=== PATIENT | female | born 1940 | race Caucasian/White ===

== ENCOUNTER 2017-06-03 18:45 | Observation (INO) | payer MEDICARE, BC ==
[~2017-06-03] VITALS: Ht 170.2 cm; Wt 77.0 kg
[2017-06-03] MEDS ORDERED: IOHEXOL 350 MG/ML 10 ML VIAL (for RAD DIAG) IVCONTRAST ONE (18:46)
[2017-06-03 18:51] VITALS: BP 223/107; PULSE 72; RESP 16; TEMP 98.4; O2SAT 93
[2017-06-03] MEDS ORDERED: GABA600T PO (19:13)
[2017-06-03] MEDS ORDERED: ROPI1TAB PO (19:13)
[2017-06-03] MEDS ORDERED: METO1TAB42 PO (19:13)
[2017-06-03] MEDS ORDERED: SERT25TA83 PO (19:15)
--- NOTE | 2017-06-03 19:27 | PD ---
HPI Chief Complaint: GI Complaint Time Seen by Provider: 19:01 Travel History International Travel<30 days: No Contact w/Intl Traveler<30days: No Traveled to known affect area: No History of Present Illness HPI 77-year-old female complains of bloody stool. Patient started having several bloody bowel movement since 5:00 this evening. Patient states that she has mild dizziness. Patient denies any headache. Patient denies any chest pain or shortness of breath. Patient denies abdominal pain. Patient denies any dysuria or frequency. Patient denies any vaginal discharge or bleeding. Patient denies any fever chills. Patient denies any back pain. Patient states that she had colonoscopy done many years ago and was normal. Patient has history hypertension on metoprolol. Patient is a smoker. Patient took Aleve occasionally. PFSH Past Medical History Anxiety: Yes Hypertension: Yes Neurologic: Yes (RESTLESS LEG SYNDROME) Tetanus Vaccination: > 5 Years Influenza Vaccination: No : 3 Para: 2 Past Surgical History Appendectomy: Yes Cholecystectomy: Yes Hysterectomy: Yes Social History Alcohol Use: Yes (SOCAIL) Tobacco Use: Yes (1/2 PPD) Substance Use: No Allergies-Medications (Allergen,Severity, Reaction): Coded Allergies: Penicillins (Verified Allergy, Unknown, rash, 06/03/17) Uncoded Allergies: sulfa (Allergy, Unknown, rash, 06/03/17) Reported Meds & Prescriptions Reported Meds & Active Scripts Active Reported Sertraline (Sertraline HCl) 25 Mg Tab 25 Mg PO HS Metoprolol Succinate ER 24 HR (Metoprolol Succinate) 25 Mg Tab 25 Mg PO DAILY Ropinirole 1 Mg Tab 1 Mg PO HS Gabapentin 600 Mg Tab 600 Mg PO HS Review of Systems General / Constitutional: No: Fever Eyes: No: Visual changes HENT: No: Headaches Cardiovascular: No: Chest Pain or Discomfort Respiratory: No: Shortness of Breath Gastrointestinal: Positive: Hematochezia, No: Abdominal Pain Genitourinary: No: Dysuria Musculoskeletal: No: Pain Skin: No Rash Neurologic: No: Weakness Psychiatric: No: Depression Endocrine: No: Polydipsia Hematologic/Lymphatic: No: Easy Bruising Physical Exam Narrative GENERAL: Well-nourished, well-developed patient. SKIN: Focused skin assessment warm/dry. HEAD: Normocephalic. EYES: No scleral icterus. No injection or drainage. NECK: Supple, trachea midline. No JVD or lymphadenopathy. CARDIOVASCULAR: Regular rate and rhythm without murmurs, gallops, or rubs. RESPIRATORY: Breath sounds equal bilaterally. No accessory muscle use. GASTROINTESTINAL: Abdomen soft, nondistended. Patient has mild to moderate tenderness palpation right lower quadrant of the abdomen. No rebound tenderness. No mass. Patient has bright red bloody stool in the bathroom. MUSCULOSKELETAL: No cyanosis, or edema. BACK: Nontender without obvious deformity. No CVA tenderness. Neurologic exam normal. Data Data Last Documented VS Vital Signs Date Time Temp Pulse Resp B/P (MAP) Pulse Ox O2 Delivery O2 Flow Rate FiO2 06/03/17 18:51 98.4 72 16 223/107 (145) 93 Orders Orders Complete Blood Count With Diff (06/03/17 19:05) Comprehensive Metabolic Panel (06/03/17 19:05) Prothrombin Time / Inr (Pt) (06/03/17 19:05) Act Partial Throm Time (Ptt) (06/03/17 19:05) Urinalysis - C+S If Indicated (06/03/17 19:05) Ct Abd/Pel W Iv Contrast(Rout) (06/03/17 19:05) Iv Access Insert/Monitor (06/03/17 19:05) Ecg Monitoring (06/03/17 19:) Oximetry (06/03/17 19:05) Type And Screen (06/03/17 19:05) Sodium Chlor 0.9% 1000 Ml Inj (Ns 1000 M (06/03/17 19:30) Pantoprazole Inj (Protonix Inj) (06/03/17 19:30) Famotidine Inj (Pepcid Inj) (06/03/17 19:30) Gabapentin (Neurontin) (06/03/17 21:00) Metoprolol Succinate Er (Toprol Xl) (06/03/17 21:00) Iohexol 350 Inj (Omnipaque 350 Inj) (06/03/17 18:46) Labs Laboratory Tests Test 06/03/17 19:15 White Blood Count 10.5 TH/MM3 Red Blood Count 4.37 MIL/MM3 Hemoglobin 14.1 GM/DL Hematocrit 41.5 % Mean Corpuscular Volume 95.0 FL Mean Corpuscular Hemoglobin 32.3 PG Mean Corpuscular Hemoglobin Concent 34.0 % Red Cell Distribution Width 13.2 % Platelet Count 249 TH/MM3 Mean Platelet Volume 7.9 FL Neutrophils (%) (Auto) 69.3 % Lymphocytes (%) (Auto) 20.7 % Monocytes (%) (Auto) 7.4 % Eosinophils (%) (Auto) 1.8 % Basophils (%) (Auto) 0.8 % Neutrophils # (Auto) 7.3 TH/MM3 Lymphocytes # (Auto) 2.2 TH/MM3 Monocytes # (Auto) 0.8 TH/MM3 Eosinophils # (Auto) 0.2 TH/MM3 Basophils # (Auto) 0.1 TH/MM3 CBC Comment DIFF FINAL Differential Comment Prothrombin Time 10.2 SEC Prothromb Time International Ratio 0.9 RATIO Activated Partial Thromboplast Time 25.2 SEC Urine Color LIGHT-YELLOW Urine Turbidity CLEAR Urine pH 7.5 Urine Specific [place] 1.004 Urine Protein NEG mg/dL Urine Glucose (UA) NEG mg/dL Urine Ketones NEG mg/dL Urine Occult Blood MOD Urine Nitrite NEG Urine Bilirubin NEG Urine Urobilinogen LESS THAN 2.0 MG/DL Urine Leukocyte Esterase NEG Urine RBC 1 /hpf Urine WBC 1 /hpf Urine Squamous Epithelial Cells <1 /hpf Urine Mucus FEW /lpf Microscopic Urinalysis Comment CULT NOT INDICATED Blood Urea Nitrogen 19 MG/DL Creatinine 0.65 MG/DL Random Glucose 114 MG/DL Total Protein 6.9 GM/DL Albumin 3.6 GM/DL Calcium Level 10.2 MG/DL Alkaline Phosphatase 67 U/L Aspartate Amino Transf (AST/SGOT) 17 U/L Alanine Aminotransferase (ALT/SGPT) 24 U/L Total Bilirubin 0.3 MG/DL Sodium Level 142 MEQ/L Potassium Level 4.1 MEQ/L Chloride Level 106 MEQ/L Carbon Dioxide Level 28.5 MEQ/L Anion Gap 8 MEQ/L Estimat Glomerular Filtration Rate 88 ML/MIN [facility] Medical Decision Making Medical Screen Exam Complete: Yes Emergency Medical Condition: Yes Interpretation(s) 2050 PM. CBC WBC 10.5. Hemoglobin 14.1 hematocrit 41.5. Normal differential. BUN 19. CMP otherwise within normal limit. UA is negative. 22:[address] scan abdomen pelvis shows ovarian cyst otherwise no acute abnormality. Differential Diagnosis Differential diagnosis including diverticulosis, diverticulitis, AV malformation , hemorrhoidal bleed. Narrative Course 77-year-old female with bloody stool. Patient has no complaint of abdominal pain. On examination patient has right lower quadrant abdominal pain. Normal saline solution 1 25 cc an hour. Pepcid 40 mg IV. Diagnosis Primary Impression: GI bleed Qualified Codes: K92.2 - Gastrointestinal hemorrhage, unspecified Admitting Information Admitting Physician Requests: Admit Allen Dior MD Jun 03, 2017 19:27
[2017-06-03] MEDS ORDERED: PANTOPRAZOLE SODIUM 40 MG VIAL IV PUSH ONE (19:30)
[2017-06-03] MEDS ORDERED: FAMOTIDINE 20 MG/2 ML VIAL IV PUSH ONE (19:30)
[2017-06-03] MEDS: SODIUM CHLOR 0.9% 1000 ML INJ 1,000 ML IV SCH (19:48)
[2017-06-03 19:50] LABS: AUTOMATED NEUTROPHIL # 7.3 TH/MM3 (1.8-7.7); BASOPHIL # 0.1 TH/MM3 (0-0.2); BASOPHIL % 0.8 % (0.0-2.0); EOSINOPHIL # 0.2 TH/MM3 (0-0.4); EOSINOPHIL % 1.8 % (0.0-4.0); HEMATOCRIT 41.5 % (35.0-46.0); HEMO FLAGS DIFF FINAL; LYMPH % 20.7 % (9.0-44.0); LYMPHOCYTE # 2.2 TH/MM3 (1.0-4.8); MEAN CORPUSCULAR HEMOGLOBIN 32.3 PG (27.0-34.0); MONO % 7.4 % (0.0-8.0); NEUT % 69.3 % (16.0-70.0); PLATELET COUNT 249 TH/MM3 (150-450); RED BLOOD COUNT 4.37 MIL/MM3 (4.00-5.30); RED CELL DISTRIBUTION WIDTH 13.2 % (11.6-17.2); WHITE BLOOD COUNT 10.5 TH/MM3 (4.0-11.0)
[2017-06-03 20:00] LABS: APTT (PATIENT) 25.2 SEC (24.3-30.1); INTERNATIONAL NORMALIZED RATIO 0.9 RATIO; PROTHROMBIN TIME - PATIENT 10.2 SEC (9.8-11.6)
[2017-06-03 20:02] LABS: BLOOD, URINE MOD (NEG); COMMENT (UR) CULT NOT INDICATED; CULTURE IF INDICATED CULT NOT INDICATED; GLUCOSE,URINE NEG (NEG); KETONE, URINE NEG (NEG); MUCUS URINE FEW /lpf (OCC); NITRITE,URINE NEG (NEG); PH, URINE 7.5 (5.0-8.5); SQUAMOUS EPITHELIAL CELL URINE <1 /hpf (0-5); URINE COLOR LIGHT-YELLOW (YELLW/STRAW)
[2017-06-03 20:12] LABS: ALKALINE PHOSPHATASE 67 U/L (45-117); ALT (GPT) 24 U/L (10-53); TOTAL BILIRUBIN ADULT 0.3 MG/DL (0.2-1.0)
[2017-06-03 20:47] LABS: ANION GAP 8 MEQ/L (5-15); AST (GOT) 17 U/L (15-37); BICARBONATE 28.5 MEQ/L (21.0-32.0); BLOOD UREA NITROGEN 19 MG/DL (7-18); CHLORIDE 106 MEQ/L (98-107); GLOMERULAR FILTRATION RATE 88 ML/MIN (>89); POTASSIUM 4.1 MEQ/L (3.5-5.1); SODIUM (NA) 142 MEQ/L (136-145)
[2017-06-03] MEDS ORDERED: METOPROLOL SUCCINATE 25 MG EXTENDED RELEASE TAB PO ONE (21:00)
[2017-06-03] MEDS ORDERED: GABAPENTIN 300 MG CAP PO ONE (21:00)
--- NOTE | 2017-06-03 21:58 | RADRPT ---
EXAM DATE/TIME: 06/03/2017 21:27 [place] COMPARISON: No previous studies available for comparison. INDICATIONS : Blood in stool. IV CONTRAST: 96 cc Omnipaque 350 (iohexol) IV ORAL CONTRAST: No oral contrast ingested. RADIATION DOSE: 11.19 CTDIvol (mGy) MEDICAL HISTORY : Hypertension. SURGICAL HISTORY : Cholecystectomy. Appendectomy.Hysterectomy. ENCOUNTER: Initial ACUITY: 1 day PAIN SCALE: 0/10 LOCATION: Abdomen. TECHNIQUE: Volumetric scanning of the abdomen and pelvis was performed. Using automated exposure control and ad justment of the mA and/or kV according to patient size, radiation dose was kept as low as reasonably achievable to obtain optimal diagnostic quality images. DICOM format image data is available electro nically for review and comparison. FINDINGS: LOWER LUNGS: The visualized lower lungs are clear. LIVER: Homogeneous density. Multiple small scattered hepatic cysts. No solid lesions. There is no dilation of the biliary tree. Gallbladder is surgically absent. SPLEEN: Normal size without lesion. PANCREAS: Within normal limits. KIDNEYS: Normal in size and shape. There is no mass or hydronephrosis. There is a 3 mm nonobstructing left r enal stone. A 2 cm cyst exophytic from the right kidney. ADRENAL GLANDS: Within normal limits. VASCULAR: There is no aortic aneurysm. BOWEL/MESENTERY: The stomach, small bowel, and colon demonstrate no acute abnormality. There is no free intraperitone al air or fluid. Multiple colonic diverticuli most pronounced within the sigmoid region. No acute inf lammatory process. ABDOMINAL WALL: Within normal limits. RETROPERITONEUM: There is no lymphadenopathy. BLADDER: No wall thickening or mass. REPRODUCTIVE: There is a cystic mass involving the pelvis just to the right of midline. This measures 9.5 x 6.9 cm. Hounsfield units are negative and one. No appreciable soft tissue nodule. As a thin imperceptible wa ll. The uterus is either atrophic or surgically absent. No free fluid. INGUINAL: There is no lymphadenopathy or hernia. MUSCULOSKELETAL: There is a scoliotic and degenerative spine. CONCLUSION: 1. No acute abnormality. 2. 9.5 x 6.9 cm cystic mass involving the pelvis. This is likely ovarian in nature. Pelvic sonography could help further clarify this lesion if clinically warranted. 3. Colonic diverticulosis without acute inflammation. 4. Prior cholecystectomy. Jose Angel Summers Jr., MD on June 03, 2017 at 21:51 Board Certified Radiologist. This report was verified electronically.
[2017-06-03 22:02] VITALS: BP 214/98; PULSE 74; RESP 16; O2SAT 93
--- NOTE | 2017-06-03 22:13 | HHI.HP ---
HPI Service [facility] Primary Care Physician Unknown Admission Diagnosis Diagnoses: (1) GI bleed Diagnosis: Principal (2) HTN (hypertension) Diagnosis: Principal (3) Dehydration Diagnosis: Principal (4) Tobacco abuse Diagnosis: Principal Travel History International Travel<30 Days: No Contact w/Intl Traveler <30 Da: No Traveled to Known Affected Are: No History of Present Illness This is a 77-year-old female with a PMH of HTN, Anxiety and Restless Leg Syndrome who presented to the ER with complaints of rectal bleeding starting earlier today. States she's had multiple episodes of bloody stool w/ bowel movements. Reports h/o hemorrhoids, however no h/o rectal bleed. On arrival, BP 223/107, HR 72, O2 sat 93% on RA, Afebrile. CBC unremarkable. Hemoglobin 14.1. GFR 88. BUN 19. UA negative. CT Abd/Pelvis w/ no acute abnormality, ovarian cyst. S/p Pepcid in ER. Review of Systems Except as stated in HPI: all other systems reviewed are Neg ROS: 14 point review of systems otherwise negative. Past Family Social History Past Medical History PMH: HTN, Anxiety and Restless Leg Syndrome Past Surgical History PAST SURGICAL HISTORY: Appendectomy, Cholecystectomy, Hysterectomy Allergies: Coded Allergies: Penicillins (Verified Allergy, Unknown, rash, 06/03/17) Uncoded Allergies: sulfa (Allergy, Unknown, rash, 06/03/17) Family History PAST FAMILY HISTORY: Reviewed. No h/o DM or CAD Social History PAST SOCIAL HISTORY: Occasional alcohol. Smokes 1/2ppd. Negative for drugs. Physical Exam Vital Signs Vital Signs Date Time Temp Pulse Resp B/P (MAP) Pulse Ox O2 Delivery O2 Flow Rate FiO2 06/03/17 22:02 74 16 214/98 (136) 93 Room Air 06/03/17 18:51 98.4 72 16 223/107 (145) 93 Physical Exam PE: GENERAL: Very pleasant elderly white female in no acute distress, appears much younger than stated age. HEENT: PERRLA, EOMI. No scleral icterus or conjunctival pallor. No lid lag or facial droop. CARDIOVASCULAR: Regular rate and rhythm. No obvious murmurs to auscultation. No chest tenderness to palpation. RESPIRATORY: No obvious rhonchi or wheezing. Clear to auscultation. Breath sounds equal bilaterally. GASTROINTESTINAL: Abdomen soft, non-tender, nondistended. BS normal. MUSCULOSKELETAL: Extremities without clubbing, cyanosis, or edema. No obvious deformities. NEUROLOGICAL: Awake, alert and oriented x4. No focal neurologic deficits. Moving both upper and lower extremities spontaneously. Laboratory Laboratory Tests Test 06/03/17 19:15 White Blood Count 10.5 Red Blood Count 4.37 Hemoglobin 14.1 Hematocrit 41.5 Mean Corpuscular Volume 95.0 Mean Corpuscular Hemoglobin 32.3 Mean Corpuscular Hemoglobin Concent 34.0 Red Cell Distribution Width 13.2 Platelet Count 249 Mean Platelet Volume 7.9 Neutrophils (%) (Auto) 69.3 Lymphocytes (%) (Auto) 20.7 Monocytes (%) (Auto) 7.4 Eosinophils (%) (Auto) 1.8 Basophils (%) (Auto) 0.8 Neutrophils # (Auto) 7.3 Lymphocytes # (Auto) 2.2 Monocytes # (Auto) 0.8 Eosinophils # (Auto) 0.2 Basophils # (Auto) 0.1 CBC Comment DIFF FINAL Differential Comment Prothrombin Time 10.2 Prothromb Time International Ratio 0.9 Activated Partial Thromboplast Time 25.2 Urine Color LIGHT-YELLOW Urine Turbidity CLEAR Urine pH 7.5 Urine Specific [place] 1.004 Urine Protein NEG Urine Glucose (UA) NEG Urine Ketones NEG Urine Occult Blood MOD Urine Nitrite NEG Urine Bilirubin NEG Urine Urobilinogen LESS THAN 2.0 Urine Leukocyte Esterase NEG Urine RBC 1 Urine WBC 1 Urine Squamous Epithelial Cells <1 Urine Mucus FEW Microscopic Urinalysis Comment CULT NOT INDICATED Blood Urea Nitrogen 19 Creatinine 0.65 Random Glucose 114 Total Protein 6.9 Albumin 3.6 Calcium Level 10.2 Alkaline Phosphatase 67 Aspartate Amino Transf (AST/SGOT) 17 Alanine Aminotransferase (ALT/SGPT) 24 Total Bilirubin 0.3 Sodium Level 142 Potassium Level 4.1 Chloride Level 106 Carbon Dioxide Level 28.5 Anion Gap 8 Estimat Glomerular Filtration Rate 88 Result Diagram: 06/03/17191406/03/171914 Caprini VTE Risk Assessment Caprini VTE Risk Assessment: No/Low Risk (score <= 1) VTE Pharm Contraindication: Active bleeding Caprini Risk Assessment Model Point Value = 1 Point Value = 2 Point Value = 3 Point Value = 5 Age 41-60 Minor surgery BMI > 25 kg/m2 Swollen legs Varicose veins or History of unexplained or recurrent spontaneous Oral contraceptives or hormone replacement Sepsis (< 1 month) Serious lung disease, including pneumonia (< 1 month) Abnormal pulmonary function Acute myocardial infarction Congestive heart failure (< 1 month) History of inflammatory bowel disease Medical patient at bed rest Age 61-74 Arthroscopic surgery Major open surgery (> 45 min) Laparoscopic surgery (> 45 min) Malignancy Confined to bed (> 72 hours) Immobilizing plaster cast Central venous access Age >= 75 History of VTE Family history of VTE Factor V Leiden Prothrombin [id number] Lupus anticoagulant Anticardiolipin antibodies Elevated serum homocysteine Heparin-induced thrombocytopenia Other congenital or acquired thrombophilia Stroke (< 1 month) Elective arthroplasty Hip, pelvis, or leg fracture Acute spinal cord injury (< 1 month) Prophylaxis Regimen Total Risk Factor Score Risk Level Prophylaxis Regimen 0-1 Low Early ambulation 2 Moderate Order ONE of the following: *Sequential Compression Device (SCD) *Heparin 5000 units SQ BID 3-4 Higher Order ONE of the following medications: *Heparin 5000 units SQ TID *Enoxaparin/Lovenox 40 mg SQ daily (WT < 150 kg, CrCl > 30 mL/min) *Enoxaparin/Lovenox 30 mg SQ daily (WT < 150 kg, CrCl > 10-29 mL/min) *Enoxaparin/Lovenox 30 mg SQ BID (WT < 150 kg, CrCl > 30 mL/min) AND/OR *Sequential Compression Device (SCD) 5 or more Highest Order ONE of the following medications: *Heparin 5000 units SQ TID (Preferred with Epidurals) *Enoxaparin/Lovenox 40 mg SQ daily (WT < 150 kg, CrCl > 30 mL/min) *Enoxaparin/Lovenox 30 mg SQ daily (WT < 150 kg, CrCl > 10-29 mL/min) *Enoxaparin/Lovenox 30 mg SQ BID (WT < 150 kg, CrCl > 30 mL/min) AND *Sequential Compression Device (SCD) Assessment and Plan Problem List: (1) GI bleed ICD Code: K92.2 - Gastrointestinal hemorrhage, unspecified Status: Acute (2) Dehydration ICD Code: E86.0 - Dehydration (3) HTN (hypertension) ICD Code: I10 - Essential (primary) hypertension (4) Tobacco abuse ICD Code: Z72.0 - Tobacco use Assessment and Plan A/P: 1. Rectal Bleed: acute onset of rectal bleeding, h/o hemorrhoids. Hgb 14.0. Admit for Observation, repeat Hgb/Hct in am, consult GI for further evaluation. Hold NSAIDs 2. Dehydration: GFR 88, BUN 19, IVF for hydration, repeat labs in am. 3. HTN: BP 223/107, HR 72 on arrival, s/p Metoprolol PO in ER, BP 191/93, HR 71, give Lopressor 5mg IV x1, monitor BP. 4. Tobacco Abuse: Pt counselled. Ativan/NicoDerm prn if needed. 5. DVT Prophylaxis: Pharmacologic contraindication secondary to acute rectal bleeding 6. Social work for d/c planning as needed. 7. Case discussed w/ ER physician at length. Problem Qualifiers (1) GI bleed: Qualified Codes: K92.2 - Gastrointestinal hemorrhage, unspecified My Palm MD Jun 03, 2017 22:13
[2017-06-03] MEDS ORDERED: ONDANSETRON HCL 4 MG/2 ML VIAL IVP PRN (22:15)
[2017-06-03] MEDS ORDERED: SENNOSIDES 8.6 MG TAB PO PRN (22:15)
[2017-06-03] MEDS ORDERED: MORPHINE SULFATE 4 MG/ML INJ IV PUSH PRN (22:15)
[2017-06-03] MEDS ORDERED: MAGNESIUM HYDROXIDE SUSP 30 ML CUP PO PRN (22:15)
[2017-06-03] MEDS ORDERED: ACETAMINOPHEN 325 MG TAB PO PRN (22:15)
[2017-06-03] MEDS ORDERED: METOPROLOL TARTRATE 5 MG/5 ML VIAL IV PUSH ONE (22:15)
[2017-06-03] MEDS ORDERED: LACTULOSE SYRUP 20 GM/30 ML CUP PO PRN (22:15)
[2017-06-03] MEDS ORDERED: SODIUM CHLORIDE 0.9% FLUSH 10 ML FLUSH IV FLUSH PRN (22:15)
[2017-06-03] MEDS ORDERED: BISACODYL 10 MG SUPP RECTAL PRN (22:15)
[2017-06-03 22:28] VITALS: BP 191/93; PULSE 71; RESP 16; O2SAT 92
[2017-06-03 22:30] VITALS: BP 190/87; PULSE 71; RESP 16; O2SAT 92
[2017-06-03 23:33] VITALS: BP 171/93; PULSE 75; RESP 16; O2SAT 93
[2017-06-04] VITALS (7 sets, daily range): BP systolic 136–214; BP diastolic 63–98; PULSE 72–81; RESP 16–22; TEMP 97.5–98; O2SAT 93–96
[2017-06-04] MEDS: SODIUM CHLOR 0.9% 1000 ML INJ 1,000 ML IV SCH ×2 (03:30→13:35)
[2017-06-04] MEDS ORDERED: ENALAPRILAT 1.25 MG/ML VIAL IV PUSH PRN ×2 (05:00→08:30)
[2017-06-04 07:03] LABS: AUTOMATED NEUTROPHIL # 5.2 TH/MM3 (1.8-7.7); BASOPHIL % 0.5 % (0.0-2.0); EOSINOPHIL # 0.2 TH/MM3 (0-0.4); EOSINOPHIL % 2.7 % (0.0-4.0); HEMATOCRIT 30.1 % (35.0-46.0); HEMO FLAGS DIFF FINAL; LYMPH % 22.4 % (9.0-44.0); LYMPHOCYTE # 1.8 TH/MM3 (1.0-4.8); MEAN CELL VOLUME 94.8 FL (80.0-100.0); MEAN CORPUSCULAR HEMOGLOBIN 32.8 PG (27.0-34.0); MEAN CORPUSCULAR HGB CONC 34.6 % (32.0-36.0); MONO % 8.9 % (0.0-8.0); NEUT % 65.5 % (16.0-70.0); PLATELET COUNT 186 TH/MM3 (150-450); RED BLOOD COUNT 3.18 MIL/MM3 (4.00-5.30); WHITE BLOOD COUNT 7.9 TH/MM3 (4.0-11.0)
[2017-06-04 07:42] LABS: ALKALINE PHOSPHATASE 43 U/L (45-117); ALT (GPT) 16 U/L (10-53); ANION GAP 6 MEQ/L (5-15); AST (GOT) 12 U/L (15-37); BICARBONATE 28.4 MEQ/L (21.0-32.0); BLOOD UREA NITROGEN 17 MG/DL (7-18); CHLORIDE 110 MEQ/L (98-107); GLOMERULAR FILTRATION RATE 112 ML/MIN (>89); POTASSIUM 4.2 MEQ/L (3.5-5.1); SODIUM (NA) 144 MEQ/L (136-145); TOTAL BILIRUBIN ADULT 0.3 MG/DL (0.2-1.0)
--- NOTE | 2017-06-04 08:57 | PD.CONS ---
HPI History of Present Illness This is a 77 year old female with HTN who presented with rectal bleeding that started yesterday. Bright red blood intermingled with formed stool initially, then stool became loose. Dark blood clots mixed in as well. No abd pain, n/v, unintended weight loss, diarrhea, constipation. No prior hx GIB. Not on blood thinners. She takes 2 Aleve daily, for at least years. Last colonoscopy in [place] > 8 y ago, normal per pt. Never had EGD. (Nallely Scherer) PFSH Past Medical History PMH: HTN, Anxiety and Restless Leg Syndrome Past Surgical History PAST SURGICAL HISTORY: Appendectomy, Cholecystectomy, Hysterectomy (Nallely Scherer) Coded Allergies: Penicillins (Verified Allergy, Unknown, rash, 06/03/17) Uncoded Allergies: sulfa (Allergy, Unknown, rash, 06/03/17) Family History PAST FAMILY HISTORY: Reviewed. No h/o DM or CAD Social History PAST SOCIAL HISTORY: rare alcohol. Smokes 1/2ppd. Negative for drugs. (Nallely Scherer) Review of Systems Constitutional: DENIES: Weight loss Eyes: DENIES: Blurred vision Ears, nose, mouth, throat: DENIES: Hearing loss Respiratory: DENIES: Hemoptysis Cardiovascular: DENIES: Chest pain Gastrointestinal: COMPLAINS OF: Black stools, Bloody stools, DENIES: Abdominal pain, Constipation, Diarrhea, Nausea, Vomiting, Hematemesis Genitourinary: DENIES: Hematuria Musculoskeletal: DENIES: Joint Swelling Integumentary: DENIES: Jaundice Hematologic/lymphatic: DENIES: Bruising Neurologic: DENIES: Abnormal gait Psychiatric: DENIES: Confusion (Nallely Scherer) GI Exam Vitals I&O Vital Signs Date Time Temp Pulse Resp B/P (MAP) Pulse Ox O2 Delivery O2 Flow Rate FiO2 06/04/17 07:23 97.5 73 16 148/67 (94) 94 06/04/17 03:35 97.7 77 18 193/94 (127) 94 06/04/17 00:05 97.8 81 19 161/97 (118) 94 06/04/17 00:01 06/03/17 23:33 75 16 171/93 (119) 93 Room Air 06/03/17 22:30 71 16 190/87 (121) 92 Room Air 06/03/17 22:28 71 16 191/93 (125) 92 Room Air 06/03/17 22:02 74 16 214/98 (136) 93 Room Air 06/03/17 18:51 98.4 72 16 223/107 (145) 93 I/O 06/03/17 06/03/17 06/03/17 06/04/17 06/04/17 06/04/17 07:00 15:00 23:00 07:00 15:00 23:00 Intake Total 1000 ml 200 ml Output Total 400 ml Balance 1000 ml -200 ml Intake Oral 200 ml IV Total 1000 ml Output Stool Total 400 ml # Voids 3 # Bowel Movements 3 1 Imaging Last Impressions Abdomen/Pelvis CT 06/03/171904 Signed Impressions: Service Date/Time: May 21:27 - CONCLUSION: 1. No acute abnormality. 2. 9.5 x 6.9 cm cystic mass involving the pelvis. This is likely ovarian in nature. Pelvic sonography could help further clarify this lesion if clinically warranted. 3. Colonic diverticulosis without acute inflammation. 4. Prior cholecystectomy. Jose Angel Summers Jr., MD Laboratory Test 06/03/17 19:15 06/04/17 06:05 White Blood Count 10.5 TH/MM3 7.9 TH/MM3 Red Blood Count 4.37 MIL/MM3 3.18 MIL/MM3 Hemoglobin 14.1 GM/DL 10.4 GM/DL Hematocrit 41.5 % 30.1 % Mean Corpuscular Volume 95.0 FL 94.8 FL Mean Corpuscular Hemoglobin 32.3 PG 32.8 PG Mean Corpuscular Hemoglobin Concent 34.0 % 34.6 % Red Cell Distribution Width 13.2 % 13.0 % Platelet Count 249 TH/MM3 186 TH/MM3 Mean Platelet Volume 7.9 FL 7.6 FL Neutrophils (%) (Auto) 69.3 % 65.5 % Lymphocytes (%) (Auto) 20.7 % 22.4 % Monocytes (%) (Auto) 7.4 % 8.9 % Eosinophils (%) (Auto) 1.8 % 2.7 % Basophils (%) (Auto) 0.8 % 0.5 % Neutrophils # (Auto) 7.3 TH/MM3 5.2 TH/MM3 Lymphocytes # (Auto) 2.2 TH/MM3 1.8 TH/MM3 Monocytes # (Auto) 0.8 TH/MM3 0.7 TH/MM3 Eosinophils # (Auto) 0.2 TH/MM3 0.2 TH/MM3 Basophils # (Auto) 0.1 TH/MM3 0.0 TH/MM3 CBC Comment DIFF FINAL DIFF FINAL Differential Comment Prothrombin Time 10.2 SEC Prothromb Time International Ratio 0.9 RATIO Activated Partial Thromboplast Time 25.2 SEC Urine Color LIGHT-YELLOW Urine Turbidity CLEAR Urine pH 7.5 Urine Specific [place] 1.004 Urine Protein NEG mg/dL Urine Glucose (UA) NEG mg/dL Urine Ketones NEG mg/dL Urine Occult Blood MOD Urine Nitrite NEG Urine Bilirubin NEG Urine Urobilinogen LESS THAN 2.0 MG/DL Urine Leukocyte Esterase NEG Urine RBC 1 /hpf Urine WBC 1 /hpf Urine Squamous Epithelial Cells <1 /hpf Urine Mucus FEW /lpf Microscopic Urinalysis Comment CULT NOT INDICATED Blood Urea Nitrogen 19 MG/DL 17 MG/DL Creatinine 0.65 MG/DL 0.53 MG/DL Random Glucose 114 MG/DL 97 MG/DL Total Protein 6.9 GM/DL 5.0 GM/DL Albumin 3.6 GM/DL 2.6 GM/DL Calcium Level 10.2 MG/DL 8.9 MG/DL Alkaline Phosphatase 67 U/L 43 U/L Aspartate Amino Transf (AST/SGOT) 17 U/L 12 U/L Alanine Aminotransferase (ALT/SGPT) 24 U/L 16 U/L Total Bilirubin 0.3 MG/DL 0.3 MG/DL Sodium Level 142 MEQ/L 144 MEQ/L Potassium Level 4.1 MEQ/L 4.2 MEQ/L Chloride Level 106 MEQ/L 110 MEQ/L Carbon Dioxide Level 28.5 MEQ/L 28.4 MEQ/L Anion Gap 8 MEQ/L 6 MEQ/L Estimat Glomerular Filtration Rate 88 ML/MIN 112 ML/MIN Physical Examination HEENT: PERRL; normocephalic; atraumatic; no jaundice. CHEST: diminished , wheezes right side CARDIAC: RRR ABDOMEN: Soft, nondistended, nontender; no hepatosplenomegaly; bowel sounds are present in all four quadrants. EXTREMITIES: No clubbing, cyanosis, or edema. SKIN: Normal; no rash; no jaundice. MISSILE [employer]CH[employer]IC: No focal deficits; alert and oriented times three. (Nallely Scherer) Assessment and Plan Plan ASSESSMENT - rectal bleeding, anemia - onset bright red blood and clots in stool yesterday , hgb dropped from 14 to 10.4 overnight. last colonoscopy 8 y ago and normal, never had EGD, regularly uses Aleve for years PLAN - EGD/colonoscopy am - GoLytelyprep - obtain consent - clears today - NPO - monitor HH - transfuse as needed This pt seen by myself and Dr Fowler and this note is written on his behalf (Nallely Scherer) Physician Comments Seen and examined with Dimple. Plan as above. Risk, benefits and possible complications discussed with the patient. Will proceed with EGD and Colonoscopy in AM. (Jane Fowler MD) Nallely Scherer Jun 04, 2017 08:57 Jane Fowler MD Jun 04, 2017 12:03
[2017-06-04] MEDS ORDERED: cloNIDine HCL 0.1 MG TAB PO PRN (09:30)
[2017-06-04] MEDS: DOCUSATE SODIUM 50 MG/SENNA 8.6 MG TAB PO SCH ×2 (09:41→20:17)
[2017-06-04] MEDS: SODIUM CHLORIDE 0.9% FLUSH 10 ML FLUSH IV FLUSH SCH ×2 (09:41→20:17)
[2017-06-04] MEDS: METOPROLOL SUCCINATE 25 MG EXTENDED RELEASE TAB PO SCH (09:41)
--- NOTE | 2017-06-04 13:34 | HHI.PR ---
Subjective Remarks Follow-up hematochezia. Noticed dark blood this morning. History of hemorrhoids. Denies abdominal pain. Uses NSAIDs. Discussed with RN Objective Vitals Vital Signs Date Time Temp Pulse Resp B/P (MAP) Pulse Ox O2 Delivery O2 Flow Rate FiO2 06/04/17 11:20 97.6 73 16 171/88 (115) 94 06/04/17 07:23 97.5 73 16 148/67 (94) 94 06/04/17 03:35 97.7 77 18 193/94 (127) 94 06/04/17 00:05 97.8 81 19 161/97 (118) 94 06/04/17 00:01 06/03/17 23:33 75 16 171/93 (119) 93 Room Air 06/03/17 22:30 71 16 190/87 (121) 92 Room Air 06/03/17 22:28 71 16 191/93 (125) 92 Room Air 06/03/17 22:02 74 16 214/98 (136) 93 Room Air 06/03/17 18:51 98.4 72 16 223/107 (145) 93 I/O 06/03/17 06/03/17 06/03/17 06/04/17 06/04/17 06/04/17 07:00 15:00 23:00 07:00 15:00 23:00 Intake Total 1000 ml 200 ml Output Total 400 ml Balance 1000 ml -200 ml Intake Oral 200 ml IV Total 1000 ml Output Stool Total 400 ml # Voids 3 # Bowel Movements 3 1 Result Diagram: 06/04/1760406/04/17604 Imaging Last Impressions Abdomen/Pelvis CT 06/03/171904 Signed Impressions: Service Date/Time: May 21:27 - CONCLUSION: 1. No acute abnormality. 2. 9.5 x 6.9 cm cystic mass involving the pelvis. This is likely ovarian in nature. Pelvic sonography could help further clarify this lesion if clinically warranted. 3. Colonic diverticulosis without acute inflammation. 4. Prior cholecystectomy. Jose Angel Summers Jr., MD Objective Remarks GENERAL: Very pleasant elderly white female in no acute distress, appears much younger than stated age. HEENT: PERRLA, EOMI. No scleral icterus or conjunctival pallor. No lid lag or facial droop. CARDIOVASCULAR: Regular rate and rhythm. No obvious murmurs to auscultation. No chest tenderness to palpation. RESPIRATORY: No obvious rhonchi or wheezing. Clear to auscultation. Breath sounds equal bilaterally. GASTROINTESTINAL: Abdomen soft, non-tender, nondistended. BS normal. MUSCULOSKELETAL: Extremities without clubbing, cyanosis, or edema. No obvious deformities. NEUROLOGICAL: Awake, alert and oriented x4. No focal neurologic deficits. Moving both upper and lower extremities spontaneously. A/P Problem List: (1) GI bleed ICD Code: K92.2 - Gastrointestinal hemorrhage, unspecified Status: Acute (2) Dehydration ICD Code: E86.0 - Dehydration (3) HTN (hypertension) ICD Code: I10 - Essential (primary) hypertension (4) Tobacco abuse ICD Code: Z72.0 - Tobacco use Assessment and Plan 1. Rectal Bleed: acute onset of rectal bleeding, h/o hemorrhoids. Continue PPI and follow-up GI consult. Will likely need endoscopy. Hold NSAIDs 2. Dehydration: GFR 88, BUN 19, IVF for hydration, repeat labs in am. Improving 3. HTN: BP 223/107, HR 72 on arrival, s/p Metoprolol PO in ER, BP 191/93, HR 71, give Lopressor 5mg IV x1, monitor BP. Improving discontinue IV fluids if tolerating by mouth. Continue metoprolol with as needed Vasotec and clonidine 4. Anemia secondary to acute blood loss. Will monitor repeat CBC in the morning 5. Tobacco Abuse: Pt counselled. Ativan/NicoDerm prn if needed. 6. DVT Prophylaxis: Pharmacologic contraindication secondary to acute rectal bleeding Discharge Planning Not ready for discharge Problem Qualifiers (1) GI bleed: Qualified Codes: K92.2 - Gastrointestinal hemorrhage, unspecified Vasile Soni MD Jun 04, 2017 13:34
[2017-06-04] MEDS ORDERED: PEG (High)/E-LYTE SOLN 4000 ML BTL PO ONE (16:00)
[2017-06-04] MEDS ORDERED: SERTRALINE HCL 50 MG TAB PO SCH (21:00)
[2017-06-04] MEDS ORDERED: GABAPENTIN 300 MG CAP PO SCH (21:00)
[2017-06-04] MEDS ORDERED: SODIUM CHLORID 0.9% 500 ML IV PRN (23:45)
[2017-06-04] MEDS ORDERED: POVIDONE IODINE 5% (ANTISEPSIS KIT) 4 APPLICATIONS EACH NARE PRN (23:45)
[2017-06-04] MEDS ORDERED: CHLORHEXIDINE GLUCONATE 2 % 1 PACK (2 CLOTHS) TOPICAL PRN (23:45)
[2017-06-04] MEDS ORDERED: LACTATED RINGER'S 1000 ML IV PRN (23:45)
[2017-06-05 03:57] VITALS: BP 163/77; PULSE 73; RESP 19; TEMP 97.6; O2SAT 94
[2017-06-05 08:23] VITALS: BP 162/86; PULSE 79; RESP 18; TEMP 97.8; O2SAT 92
[2017-06-05] MEDS: SODIUM CHLOR 0.9% 1000 ML INJ 1,000 ML IV SCH (08:27)
[2017-06-05] MEDS: SODIUM CHLORIDE 0.9% FLUSH 10 ML FLUSH IV FLUSH SCH (08:27)
[2017-06-05] MEDS: DOCUSATE SODIUM 50 MG/SENNA 8.6 MG TAB PO SCH (09:00)
[2017-06-05 09:13] LABS: AUTOMATED NEUTROPHIL # 4.2 TH/MM3 (1.8-7.7); BASOPHIL % 0.5 % (0.0-2.0); EOSINOPHIL # 0.2 TH/MM3 (0-0.4); HEMATOCRIT 30.8 % (35.0-46.0); HEMO FLAGS DIFF FINAL; LYMPH % 24.8 % (9.0-44.0); LYMPHOCYTE # 1.6 TH/MM3 (1.0-4.8); MEAN CELL VOLUME 94.5 FL (80.0-100.0); MEAN CORPUSCULAR HEMOGLOBIN 32.1 PG (27.0-34.0); MONO % 8.8 % (0.0-8.0); NEUT % 62.9 % (16.0-70.0); PLATELET COUNT 207 TH/MM3 (150-450); RED BLOOD COUNT 3.25 MIL/MM3 (4.00-5.30); RED CELL DISTRIBUTION WIDTH 13.3 % (11.6-17.2); WHITE BLOOD COUNT 6.6 TH/MM3 (4.0-11.0)
[2017-06-05 09:33] LABS: BICARBONATE 29.1 MEQ/L (21.0-32.0); MAGNESIUM 1.8 MG/DL (1.5-2.5); POTASSIUM 4.2 MEQ/L (3.5-5.1)
[2017-06-05] MEDS: METOPROLOL SUCCINATE 25 MG EXTENDED RELEASE TAB PO SCH (10:36)
[2017-06-05 11:05] VITALS: BP 164/83; PULSE 67; RESP 18; TEMP 98.2; O2SAT 92
[2017-06-05] MEDS ORDERED: LACTATED RINGER'S 1000 ML INJ 1,000 ML IV ONE (12:00)
[2017-06-05] MEDS ORDERED: LIDOCAINE HCL 1% PF 5 ML AMPULE OTHER ONE (12:00)
[2017-06-05] MEDS ORDERED: PROPOFOL 200 MG/20 ML AMP IV ONE (12:00)
[2017-06-05] MEDS ORDERED: DO NOT ADM ANY ANTICOAGULANT DRUGS PRN (12:21)
--- NOTE | 2017-06-05 12:21 | HHI.PR ---
Subjective Remarks Follow-up GI bleed. Continue to have hematochezia yesterday. Awaiting colonoscopy. Discussed with RN Objective Vitals Vital Signs Date Time Temp Pulse Resp B/P (MAP) Pulse Ox O2 Delivery O2 Flow Rate FiO2 06/05/17 11:05 98.2 67 18 164/83 (110) 92 06/05/17 08:23 97.8 79 18 162/86 (111) 92 06/05/17 03:57 97.6 73 19 163/77 (105) 94 06/04/17 23:15 97.6 77 18 136/63 (87) 94 06/04/17 20:19 97.8 72 22 214/98 (136) 96 06/04/17 16:00 98.0 79 18 176/73 (107) 93 I/O 06/04/17 06/04/17 06/04/17 06/05/17 06/05/17 06/05/17 07:00 15:00 23:00 07:00 15:00 23:00 Intake Total 200 ml Output Total 400 ml Balance -200 ml Intake Oral 200 ml Output Stool Total 400 ml # Voids 3 1 4 # Bowel Movements 1 Result Diagram: 06/05/17 0835 06/05/17 0835 Imaging Last Impressions Abdomen/Pelvis CT 06/03/17 190 Signed Impressions: Service Date/Time: May 21:27 - CONCLUSION: 1. No acute abnormality. 2. 9.5 x 6.9 cm cystic mass involving the pelvis. This is likely ovarian in nature. Pelvic sonography could help further clarify this lesion if clinically warranted. 3. Colonic diverticulosis without acute inflammation. 4. Prior cholecystectomy. Jose Angel Summers Jr., MD Objective Remarks GENERAL: Very pleasant elderly white female in no acute distress, appears much younger than stated age. HEENT: PERRLA, EOMI. No scleral icterus or conjunctival pallor. No lid lag or facial droop. CARDIOVASCULAR: Regular rate and rhythm. No obvious murmurs to auscultation. No chest tenderness to palpation. RESPIRATORY: No obvious rhonchi or wheezing. Clear to auscultation. Breath sounds equal bilaterally. GASTROINTESTINAL: Abdomen soft, non-tender, nondistended. BS normal. MUSCULOSKELETAL: Extremities without clubbing, cyanosis, or edema. No obvious deformities. NEUROLOGICAL: Awake, alert and oriented x4. No focal neurologic deficits. Moving both upper and lower extremities spontaneously. No significant change in PE from previous A/P Problem List: (1) GI bleed ICD Code: K92.2 - Gastrointestinal hemorrhage, unspecified Status: Acute (2) Dehydration ICD Code: E86.0 - Dehydration (3) HTN (hypertension) ICD Code: I10 - Essential (primary) hypertension (4) Tobacco abuse ICD Code: Z72.0 - Tobacco use Assessment and Plan 1. Rectal Bleed: acute onset of rectal bleeding, h/o hemorrhoids. Continue PPI and follow-up colonoscopy by GI. Hold NSAIDs 2. Dehydration: GFR 88, BUN 19, IVF for hydration. Improving 3. HTN: BP 223/107, HR 72 on arrival, s/p Metoprolol PO in ER, BP 191/93, HR 71, give Lopressor 5mg IV x1, monitor BP. Improving discontinue IV fluids if tolerating by mouth. Continue metoprolol with as needed Vasotec and clonidine.. Cautious BP control secondary to ongoing bleed 4. Anemia secondary to acute blood loss. Stable. Will monitor repeat CBC in the morning 5. Tobacco Abuse: Pt counselled. Ativan/NicoDerm prn if needed. 6. DVT Prophylaxis: Pharmacologic contraindication secondary to acute rectal bleeding Discharge Planning Discharge when cleared by GI Problem Qualifiers (1) GI bleed: Qualified Codes: K92.2 - Gastrointestinal hemorrhage, unspecified Vasile Soni MD Jun 05, 2017 12:21
--- NOTE | 2017-06-05 12:27 | GIPROC ---
[facility] [address] [facility]. [facility], [address] EGD PROCEDURE REPORT EXAM DATE: 06/05/2017 PATIENT NAME: Monica Whatley MR #: [id number] BIRTHDATE: 1940 ATTENDING: Jane Fowler MD ORDER #: [id number] UTILITY WORKER FORGE: Juan Antonio Lacey Pat STATUS: inpatient INDICATIONS: The patient is a 77 yr old female here for an EGD due to hematochezia PROCEDURE PERFORMED: EGD, diagnostic MEDICATIONS: None and Per Anesthesia. TOPICAL ANESTHETIC: none CONSENT: The patient understands the risks and benefits of the procedure and understands that these risks include, but are not limited to: sedation, allergic reaction, infection, perforation and/or bleeding. Alternative means of evaluation and treatment include, among others: physical exam, x-rays, and/or surgical intervention. The patient elects to proceed with this endoscopic procedure. medical equipment was checked for proper function. Hand hygiene and appropriate measures for infection prevention was taken. After the risks, benefits and alternatives of the procedure were thoroughly explained, Informed consent was verified, confirmed and timeout was successfully executed by the treatment team. The patient was anesthetized with topical anesthesia and the EC-[id number] (Pedi C) endoscope was introduced through the mouth and advanced to the second portion of the duodenum. Retroflexion was performed and was normal The gastroscope was then slowly withdrawn and removed. The endoscopy was otherwise normal. ADVERSE EVENTS: There were no complications. IMPRESSIONS: Normal endoscopy otherwise RECOMMENDATIONS: 1. No treatment 2. Avoid NSAIDS PATIENT CONDITION: stable DISPOSITION: Observation REPEAT EXAM: NONE Jane Fowler MD eSigned: Jane Fowler MD 06/05/2017 12:27 PM cc: PATIENT NAME: Monica Whatley MR#: [id number]
--- NOTE | 2017-06-05 12:31 | GIPROC ---
[facility] [address] [facility]. [facility], [address] COLONOSCOPY PROCEDURE REPORT EXAM DATE: 06/05/2017 PATIENT NAME: Monica Whatley MR #: [id number] BIRTHDATE: 1940 ENDOSCOPIST: Jane Fowler MD ORDER #: [id number] 3RD GRADE TEACHER: Sherri Ward and Gerson Lacey STATUS: inpatient INDICATIONS: The patient is a 77 yr old female here for a colonoscopy due to rectal bleeding PROCEDURE PERFORMED: Colonoscopy, diagnostic MEDICATIONS: None and Per Anesthesia. PREP QUALITY: fair PREP TYPE:GoLytely ESTIMATED BLOOD LOSS: None CONSENT: The patient understands the risks and benefits of the procedure and understands that these risks include, but are not limited to: sedation, allergic reaction, infection, perforation and/or bleeding. Alternative means of evaluation and treatment include, among others: physical exam, x-rays, and/or surgical intervention. The patient elects to proceed with this endoscopic procedure. medical equipment was checked for proper function. Hand hygiene and appropriate measures for infection prevention was taken. After the risks, benefits and alternatives of the procedure were thoroughly explained, Informed consent was verified, confirmed and timeout was successfully executed by the treatment team. A digital exam revealed no abnormalities of the rectum The Pentax EC-[id number] endoscope was introduced through the anus and advanced to the cecum, which was identified by both the appendix and ileocecal valve. The instrument was then slowly withdrawn as the colon was fully examined. COLON FINDINGS: There was severe diverticulosis noted in the sigmoid colon and descending colon with associated muscular hypertrophy, colonic spasm and tortuosity. Moderate sized internal hemorrhoids were found. Retroflexed views revealed no abnormalities The scope was then completely withdrawn from the patient and the procedure terminated. PROCEDURE WITHDRAWAL TIME:9minutes ADVERSE EVENTS: There were no complications. IMPRESSIONS: 1. There was severe diverticulosis noted in the sigmoid colon and descending colon 2. Moderate sized internal hemorrhoids RECOMMENDATIONS: High fiber diet RECALL: Return 5 years Colonoscopy Jane Fowler MD eSigned: Jane Fowler MD 06/05/2017 12:31 PM cc: PATIENT NAME: Monica Whatley MR#: [id number]
--- NOTE | 2017-06-05 12:38 | EKG ---
Date Performed: 06/05/2017 Time Performed: 00:15:02 PTAGE: 77 years EKG: Sinus rhythm POSSIBLE RIGHT VENTRICULAR CONDUCTION DELAY NONSPECIFIC T-WAVE ABNORMALITY BORDERLINE ECG NO PREVIOUS TRACING DOCTOR: Otis Kent Interpretating Date/Time 06/05/2017 12:37:06
[2017-06-05 12:45] VITALS: BP 155/80; PULSE 75; RESP 14; TEMP 97.5; O2SAT 93
[2017-06-05] MEDS ORDERED: WHEA1POW PO (14:40)
--- NOTE | 2017-06-05 15:56 | HHI.DCPOC ---
Discharge Care Plan Diagnosis: (1) GI bleeding (2) Diverticulosis of colon (3) Internal hemorrhoids Goals to Promote Your Health * To prevent worsening of your condition and complications * To maintain your health at the optimal level Directions to Meet Your Goals Take your medications as prescribed Follow your dietary instruction Follow activity as directed Keep your appointments as scheduled Take your immunizations and boosters as scheduled If your symptoms worsen call your PCP, if no PCP go to Urgent Care Center or Emergency Room Smoking is Dangerous to Your Health. Avoid second hand smoke Call the 24-hour hour crisis hotline for domestic abuse at Mony Huynh PA-C Jun 05, 2017 3:56 pm
== END 2017-06-05 16:39 | disposition home or self-care (01) ==
LOC: NEPE 18:45 → NEDA 22:15 → NEPFCDU 23:59
PROVIDERS: ADMIT Internal Medicine; ATTEND Internal Medicine
DX: K92.2 Gastrointestinal hemorrhage, unspecified (principal); E86.0 Dehydration; D62 Acute posthemorrhagic anemia; N94.89 Other specified conditions associated with female genital organs and menstrual cycle; R10.31 Right lower quadrant pain; I10 Essential (primary) hypertension; G25.81 Restless legs syndrome; K57.30 Diverticulosis of large intestine without perforation or abscess without bleeding; F41.9 Anxiety disorder, unspecified; F17.200 Nicotine dependence, unspecified, uncomplicated; Z79.899 Other long term (current) drug therapy
CPT/HCPCS: 74177; 76937; 80048; 80053; 81001; 83735; 85025; 85610; 85730; 86850; 86900; 86901; 93005; 96361; 96374; 96375; 99285; C9113; G0378; J7030; J7120; Q9967